=== PATIENT | male | born 1995 | race Caucasian/White ===

== ENCOUNTER 2019-04-03 18:39 | Emergency (ER) | payer OTHER ==
[~2019-04-03] VITALS: Ht 182.9 cm; Wt 100.0 kg
[2019-04-03 18:53] VITALS: BP 139/87; TEMP 98.4
[2019-04-03 21:59] VITALS: PULSE 80
== END 2019-04-03 21:59 | disposition home or self-care (01) ==
LOC: COL.ER 18:39
DX: S61.215A Laceration without foreign body of left ring finger without damage to nail, initial encounter (principal); Z23 Encounter for immunization; F17.210 Nicotine dependence, cigarettes, uncomplicated; W26.0XXA Contact with knife, initial encounter; Y92.59 Other trade areas as the place of occurrence of the external cause

== ENCOUNTER 2020-07-25 22:03 | Emergency (ER) | payer SELFPAY ==
[~2020-07-25] VITALS: Ht 182.9 cm; Wt 113.6 kg
[2020-07-25 22:18] VITALS: TEMP 97.3
[2020-07-25 23:26] VITALS: BP 141/94; PULSE 96
== END 2020-07-25 23:26 | disposition home or self-care (01) ==
LOC: COL.ER 22:03
DX: S93.401A Sprain of unspecified ligament of right ankle, initial encounter (principal); X50.1XXA Overexertion from prolonged static or awkward postures, initial encounter; Y93.61 Activity, american tackle football; Y92.009 Unspecified place in unspecified non-institutional (private) residence as the place of occurrence of the external cause